=== PATIENT | female | born 1960 | race Caucasian/White ===

== ENCOUNTER 2017-10-16 12:49 | Emergency (ER) | payer OTHER ==
[~2017-10-16] VITALS: Ht 147.3 cm; Wt 57.6 kg
[2017-10-16 14:43] VITALS: BP 102/59
--- NOTE | 2017-10-16 15:29 | NUR ---
SEND BY [facility] FOR EVALUATION OF COPD, HYPOXIA, BRONCHITIS, SMOKER X 17 YRS, STOP SMOKING LAST WEEK; C/O LOTS OF COUGHING TODAY WITH YELLOW PLEGM; HX; SMOKING X 17 YRS, BRONCHITIS RX; DENIES
--- NOTE | 2017-10-16 16:33 | NUR ---
Patient discharged with v/s stable. Written and verbal after care instructions given and explained. Patient alert, oriented and verbalized understanding of instructions. Ambulatory with steady gait. All questions addressed prior to discharge. ID band removed. Patient advised to follow up with PMD. Rx of PROMETHAZINE given. Patient educated on indication of medication including possible reaction and side effects. Opportunity to ask questions provided and answered.
[2017-10-16 16:43] VITALS: BP 96/68
== END 2017-10-16 16:33 | disposition home or self-care (01) ==
LOC: MED 12:49
DX: J06.9 Acute upper respiratory infection, unspecified (principal)
CPT/HCPCS: 99283